=== PATIENT | female | born 1945 | race Caucasian/White ===

== ENCOUNTER 2021-11-27 17:38 | Emergency (ER) | payer MEDICARE, OTHER ==
[~2021-11-27 17:38] MED LIST: ALEVE220 M1 PO; BENADRYL25 MG PO; CARAFATE S500 MG/TSP PO; CARAFATE1 GM PO; FLONASE ALLER15.8 ML; HYZAAR 100-12.1 EACH PO; NEXIUM20 MG PO; WELLBUTRIN XL150 MG PO; ZANTAC150 MG PO; ZOFRAN4 MG PO; ZOLOFT50 MG PO; ZYRTEC10 M3 PO
[2021-11-27 17:58] LABS: BASOPHIL 0.3 % (0-2); EOSINOPHIL 8.7 % (0-7); HCT 39.4 % (37.0-47.0); LYMPHOCYTE 26.9 % (15-48); MCH 31.3 pg (25.0-31.0); MCHC 35.5 g/dL (32.0-36.0); MCV 88.1 fL (78.0-100.0); MONOCYTE 10.5 % (0-12); MPV 9.7 fL (6.0-9.5); NEUTROPHIL 53.2 % (41-80); NRBC 0; PLT 264 K/uL (150-400); RBC 4.47 M/uL (4.20-5.40); WBC 7.5 K/uL (4.0-10.5)
[2021-11-27 18:27] LABS: BUN/CREAT RATIO (CALC) 18.5 RATIO; CREATININE 1.08 mg/dL (0.51-0.95); POTASSIUM 3.7 mmol/L (3.5-5.1)
[2021-11-27] MEDS ORDERED: MEDROL 4MG DOSEP4 MG PO (20:57)
[2021-11-27] MEDS ORDERED: EPIPEN 2-P0.3 MG/0.3 IM (20:57)
== END 2021-11-27 21:32 | disposition home or self-care (01) ==
LOC: FER 17:38
PROVIDERS: Internal Medicine
DX: T78.2XXA Anaphylactic shock, unspecified, initial encounter (principal); I10 Essential (primary) hypertension; F32.A Depression, unspecified; F41.9 Anxiety disorder, unspecified; Z79.899 Other long term (current) drug therapy; Z28.311 Partially vaccinated for COVID-19
CPT/HCPCS: 36415; 80048; 84484; 85025; 93005; 96372; J0171; J1200; J2930; J7030